=== PATIENT | female | born 1955 | race Caucasian/White ===

== ENCOUNTER → 2023-08-04 | Outpatient (CLI) | payer MEDICARE ==
[~2023-08-04] MED LIST: BP MED; CHOLESTEROL MED; MECL25 PO; NITR100CA PO; ONDA4ODT MM; THYROID
[2023-08-04 12:53] LABS: Bacteria Few /hpf; Red Blood Cells, Urine 0-2 /hpf (0-2); Squamous Epithelial Cells Rare /hpf (Few)
== END | disposition home or self-care (01) ==
LOC: LAB 12:43 → LAB SHORT 12:43
PROVIDERS: Family Medicine
DX: R82.90 Unspecified abnormal findings in urine (principal)
CPT/HCPCS: 81015

== ENCOUNTER → 2024-01-20 | Outpatient (CLI) | payer MEDICARE ==
[2024-01-20 10:36] LABS: BASOPHILS ABSOLUTE AUTO 0.02 K/mm3 (0.00-0.23); BASOPHILS PERCENT AUTO 0 % (0-2); EOSINOPHILS ABSOLUTE AUTO 0.09 K/mm3 (0.00-0.68); EOSINOPHILS PERCENT AUTO 2 % (0-6); Hematocrit 42.7 % (33.0-51.0); Hemoglobin 13.9 g/dL (11.5-16.0); IMMATURE GRAN ABSOLUTE AUTO 0.01 K/mm3 (0.00-0.10); IMMATURE GRAN PERCENT AUTO 0 % (0-1); LYMPHOCYTES ABSOLUTE AUTO 1.39 K/mm3 (0.84-5.20); LYMPHOCYTES PERCENT AUTO 24 % (21-46); MONOCYTES ABSOLUTE AUTO 0.42 K/mm3 (0.16-1.47); MONOCYTES PERCENT AUTO 7 % (4-13); Mean Corpuscular HGB 30.4 pg (26.0-34.0); Mean Corpuscular HGB Conc 32.6 g/dL (31.5-36.5); Mean Corpuscular Volume 93 fL (80-100); NEUTROPHILS ABSOLUTE AUTO 3.77 K/mm3 (1.96-9.15); NEUTROPHILS PERCENT AUTO 66 % (41-73); Platelet Count 194 K/mm3 (150-400); RDW Coefficient Variation 13.2 % (11.7-14.2); RDW Standard Deviation 44.5 fL (35.1-46.3); Red Blood Cell Count 4.57 M/mm3 (3.80-5.20)
[2024-01-20 10:40] LABS: Calcium, Blood 9.4 mg/dL (8.5-10.1); Creatinine, Blood 0.9 mg/dL (0.40-1.00); Potassium, Blood 4.2 mmol/L (3.5-5.5)
== END | disposition home or self-care (01) ==
LOC: LAB SHORT 10:32 → LAB 10:32
PROVIDERS: Physician Assistant Medical
DX: R10.31 Right lower quadrant pain (principal)
CPT/HCPCS: 80048; 85025

== ENCOUNTER 2025-01-05 07:41 | Day surgery (SDC) | payer OTHER ==
[2025-01-05] VITALS (23 sets, daily range): BP systolic 73–155; BP diastolic 35–89
[~2025-01-05] VITALS: Ht 160 cm; Wt 99.0 kg
[~2025-01-05 07:41] MED LIST changes: +EUTHYROX88 MCG PO; +METO25ER PO; +MIRAPEX0.25 M3 PO; +Prinivil10 MG PO
[2025-01-05] MEDS ORDERED: OxyCODONE HCL 10 MG TABCR PO SCH (07:50)
[2025-01-05] MEDS ORDERED: Ropivacaine 0.5% HCl/Pf 123.125 MG,EPINEPHrine HCL 0.25 MG,Ketorolac Tromethamine 15 MG... INFIL SCH (07:50)
[2025-01-05] MEDS ORDERED: CeFAZolin Sodium 2,000 MG in NS 100 ML IV SCH ×2 (07:50→18:00)
[2025-01-05] MEDS ORDERED: Lactated Ringer's 1,000 ML IV SCH ×2 (07:50→09:45)
[2025-01-05] MEDS ORDERED: Chlorhexidine Mouth Care 15 ML UDC MT SCH (07:50)
[2025-01-05] MEDS ORDERED: Acetaminophen 500 MG Tab PO SCH ×2 (07:50→16:00)
[2025-01-05] MEDS ORDERED: Tranexamic Acid 1,000 MG in NS 100 ML IV SCH (07:50)
[2025-01-05] MEDS ORDERED: Midazolam HCl 1MG / ML 2ML Vial IV ONE (09:25)
[2025-01-05] MEDS ORDERED: Ondansetron HCl 2 MG / ML 2ML Vial IV PRN (09:40)
[2025-01-05] MEDS ORDERED: Metoclopramide HCl 5MG / ML 2ML Vial IV PRN (09:40)
[2025-01-05] MEDS ORDERED: Magnesium Hydroxide Conc 10 ML UDC PO PRN (09:45)
[2025-01-05] MEDS ORDERED: Bisacodyl 10 MG Supp PR PRN (09:45)
[2025-01-05] MEDS ORDERED: Prochlorperazine Edisylate 10 mg Vial IV PRN (09:45)
[2025-01-05] MEDS ORDERED: OxyCODONE HCL 5 MG TAB PO PRN ×2 (09:45)
[2025-01-05] MEDS ORDERED: HYDROmorphone HCl/Pf 1MG SYR IV PRN (09:50)
[2025-01-05] MEDS ORDERED: FLU VACC TS2024-25(6MOS UP)/PF 45 MCG/0.5 ML SYRINGE IM SCH (09:50)
[2025-01-05] MEDS ORDERED: Promethazine HCl 25 MG Tab PO PRN (09:50)
[2025-01-05] MEDS ORDERED: METO25ER PO (09:52)
[2025-01-05] MEDS ORDERED: DiphenhydrAMINE HCL 25 MG Cap PO PRN (09:55)
[2025-01-05] MEDS ORDERED: propofoL 100 ML IV ONE (10:03)
[2025-01-05] MEDS ORDERED: Phenylephrine HCl 10mg/ml 1 ml Vial ONE (10:10)
[2025-01-05] MEDS ORDERED: Ketorolac Tromethamine 30mg Vial ONE (11:53)
[2025-01-05] MEDS ORDERED: Phenylephrine HCl 100 MCG/ML-NS 10MLSYR (1MG/10ML) ONE (11:53)
[2025-01-05] MEDS ORDERED: ePHEDrine Sulfate 50 MG/ML 1ML Injection ONE (12:31)
[2025-01-05] MEDS ORDERED: Albumin (Human) 12.5gm/250ml 500 ML IV ONE (12:46)
[2025-01-05] MEDS ORDERED: Albumin (Human) 12.5gm/250ml 250 ML IV SCH (13:40)
[2025-01-05] MEDS ORDERED: Ketorolac Tromethamine 15mg Vial IV SCH (18:00)
--- NOTE | 2025-01-05 19:44 | NUR ---
SHIFT SUMMARY POD0 L CARLOS, A/OX4, VSS, TOLERATING PO, PAIN MANAGED PER EMAR, SHE HAS NOT VOIDED YET BUT STATES SHE CAN FEEL LIKE SHE HAS TO GO BUT DOES NOT APPEAR TO BE COMFORTABLE GOIGN WITH THIS RN IN THE ROOM, [employer]ET ST[employer] VENDOR CHECKED ON HER AFTER 1700 MEDS GIVEN AND SHE WAS FOUND TO HAVE WET HERSELF IN BED AND WAS ASSISTED IN A FULL BED CHANGE. AQUACELLDRESSING TO L HIP C/D/I. SHE HAD ONE EPISODE OF EMESIS IN WHICH SHE WAS ASSISTED BY A COPPER TAPPER FOR AN UNMEASURED EMESIS. ABLE TO EAT A SMALL AMOUNT OF DINNER WITH NO NAUSEA. NO ACUTE EVENTS THIS SHIFT, CALL LIGHT IN REACH.
[2025-01-05] MEDS ORDERED: Pramipexole DI-HCL 0.25 MG Tab PO SCH (21:00)
[2025-01-05] MEDS ORDERED: Docusate Sodium 100 MG Cap PO SCH (21:00)
[2025-01-06 00:24] VITALS: BP 104/56
[2025-01-06 05:35] VITALS: BP 116/56
[2025-01-06] MEDS ORDERED: Levothyroxine Sodium 0.088 MG Tab PO SCH (06:00)
--- NOTE | 2025-01-06 06:27 | NUR ---
SHIFT SUMMARY POD 1 L CARLOS. VSS. TOLERATING ORALS. VOIDING. AQUACEL C/D/I. PT REPORTS INCREASED PAIN OVERNIGHT & ORALS NARCOTICS NOT TOLERATED R/T ITCHYNESS UNRELIEVED c BENDRYL PER EMAR. PT REPORTS SOME PAIN RELIEF c IV DILAUDID PER EMAR. POLAR PACK IN USE. ANTICIPATED TO WORK c PHYSCIAL THERAPY THEN DISCHARGE HOME LATER TODAY. PT DRESSED, RESTING IN CHAIR. CALL LIGHT IN REACH, WILL REPORT TO DAY RN.
[2025-01-06 06:50] LABS: BASOPHILS ABSOLUTE AUTO 0.02 K/mm3 (0.00-0.23); BASOPHILS PERCENT AUTO 0 % (0-2); EOSINOPHILS ABSOLUTE AUTO 0.14 K/mm3 (0.00-0.68); EOSINOPHILS PERCENT AUTO 2 % (0-6); Hematocrit 30.5 % (33.0-51.0); Hemoglobin 9.7 g/dL (11.5-16.0); IMMATURE GRAN ABSOLUTE AUTO 0.02 K/mm3 (0.00-0.10); IMMATURE GRAN PERCENT AUTO 0 % (0-1); LYMPHOCYTES ABSOLUTE AUTO 1.12 K/mm3 (0.84-5.20); LYMPHOCYTES PERCENT AUTO 14 % (21-46); MONOCYTES ABSOLUTE AUTO 0.51 K/mm3 (0.16-1.47); MONOCYTES PERCENT AUTO 6 % (4-13); Mean Corpuscular HGB 30.9 pg (26.0-34.0); Mean Corpuscular HGB Conc 31.8 g/dL (31.5-36.5); Mean Corpuscular Volume 97 fL (80-100); Mean Platelet Volume 11.5 fL (9.1-12.4); NEUTROPHILS ABSOLUTE AUTO 6.34 K/mm3 (1.96-9.15); NEUTROPHILS PERCENT AUTO 78 % (41-73); Platelet Count 156 K/mm3 (150-400); RDW Coefficient Variation 13.3 % (11.7-14.2); Red Blood Cell Count 3.14 M/mm3 (3.80-5.20); White Blood Cell Count 8.15 K/mm3 (4.00-11.30)
[2025-01-06 06:57] LABS: Bun/Creatinine Ratio 21.5 (12.0-20.0); Calcium, Blood 8.4 mg/dL (8.5-10.1); Creatinine, Blood 0.98 mg/dL (0.40-1.00); Potassium, Blood 3.7 mmol/L (3.5-5.5)
[2025-01-06 07:21] VITALS: BP 108/54
[2025-01-06] MEDS ORDERED: HYDROcodone 5-APAP 325 TAB PO PRN (08:05)
[2025-01-06] MEDS ORDERED: Aspirin 81 MG Chew PO SCH (09:00)
[2025-01-06] MEDS ORDERED: Lisinopril 10 MG Tab PO SCH (09:00)
[2025-01-06] MEDS ORDERED: ASPI81CH PO (10:35)
--- NOTE | 2025-01-06 11:46 | NUR ---
DISCHARGE PT D/C FROM FLOOR AT 1140. PT VOIDING, EATING, DRINKING AND CLEARED BY PHYSICAL THERAPY. LEXA K[place]ADIA WROTE SCRIPT FOR ORAL PO PAIN MEDS AT HOME. PT REPORTED ITCHINESS WHILE TAKING OXYCODONE SO HYDROCODONE ORDERED INSTEAD AND PT STATED ITCHING WAS LESS WHILE TAKING HYDROCODONE. PT STATED PAIN IS TOLERABLE W/PAIN MEDICATION, COOLING THERAPY AND REPOSITIONING. REVIEWED D/C INSTRUCTIONS W/ PT AND HANDOUTS PROVIDED.
== END 2025-01-06 11:36 | disposition home or self-care (01) ==
LOC: ORSCMMR 07:41 → ORD 09:15 → ORSCMMR 09:15 → SURS 13:07 → ORSCMMR 01-06 11:36 → SURS 01-06 11:36
PROVIDERS: Orthopaedic Surgery
PROC: 0SRB0JZ Replacement of Left Hip Joint with Synthetic Substitute, Open Approach (ICD-10-PCS; principal; 2025-01-05 09:15)
DX: M16.12 Unilateral primary osteoarthritis, left hip (principal); I10 Essential (primary) hypertension; E03.9 Hypothyroidism, unspecified; E78.5 Hyperlipidemia, unspecified; Z79.899 Other long term (current) drug therapy; Z85.820 Personal history of malignant melanoma of skin
CPT/HCPCS: 36415; 72170; 80048; 85025; 97116; 97162; 97530; A9270; C1713; C1776; J0171; J0690; J0735; J1171; J1885; J2250; J2371; J2405; J2704; J2795; J7120; P9045

== ENCOUNTER 2025-11-08 06:21 | Day surgery (SDC) | payer OTHER ==
[~2025-11-08] VITALS: Ht 160 cm; Wt 106.2 kg
[~2025-11-08 06:21] MED LIST changes: +ASPI81CH PO; +Lidocaine 1%-Epineph 1:100000 20 ML MDV ONE; +NS 500 ML IV ONE; +PRAM.125 PO
[2025-11-08] MEDS ORDERED: CeFAZolin Sodium 2,000 MG VIAL ONE (06:24)
[2025-11-08] MEDS ORDERED: NS 500 ML IV ONE (06:45)
[2025-11-08] MEDS ORDERED: POTA10T PO (06:52)
[2025-11-08] MEDS ORDERED: FURO20 PO (06:52)
[2025-11-08] MEDS ORDERED: OMEP20ER PO (06:53)
[2025-11-08] MEDS ORDERED: TUMS500 MG PO (06:54)
[2025-11-08] MEDS ORDERED: IRON18 M1 PO (06:54)
[2025-11-08] MEDS ORDERED: MERIBIN5 MG PO (06:54)
[2025-11-08] MEDS ORDERED: VITAMIN B121000 MCG PO (06:55)
[2025-11-08 08:39] VITALS: BP 113/70
== END 2025-11-08 08:28 | disposition home or self-care (01) ==
LOC: ORSCSDS 06:21
PROVIDERS: Orthopaedic Surgery
PROC: 01N54ZZ Release Median Nerve, Percutaneous Endoscopic Approach (ICD-10-PCS; principal; 2025-11-08 07:30)
PROC: 0JBG0ZX Excision of Right Lower Arm Subcutaneous Tissue and Fascia, Open Approach, Diagnostic (ICD-10-PCS; principal; 2025-11-08 07:30)
DX: G56.03 Carpal tunnel syndrome, bilateral upper limbs (principal); I10 Essential (primary) hypertension; E05.90 Thyrotoxicosis, unspecified without thyrotoxic crisis or storm; K21.9 Gastro-esophageal reflux disease without esophagitis; E66.9 Obesity, unspecified; Z68.41 Body mass index [BMI] 40.0-44.9, adult; Z79.899 Other long term (current) drug therapy
CPT/HCPCS: 88304; 88312; J0690; J2704; J7040